=== PATIENT | female | born 1995 | race African-American/Black ===

== ENCOUNTER 2025-07-21 14:29 | Emergency (ER) | payer MEDICAID ==
[~2025-07-21] VITALS: Ht 170.2 cm; Wt 100.0 kg
[2025-07-21 14:39] VITALS: O2SAT 100
[2025-07-21 15:48] LABS: BASOPHILS % 0.7 % (0.0-2.0); EOSINOPHILS % 4.0 % (0.0-5.0); HEMATOCRIT. 37.3 % (36.0-48.0); HEMOGLOBIN. 12.2 g/dL (12.0-16.0); LYMPHOCYTES % 28.0 % (20.0-50.0); MEAN PLATELET VOLUME 8.5 fl (7.4-10.4); MONOCYTES % 6.6 % (2.0-8.0); NEUTROPHILS % 60.7 % (40.0-76.0); PLATELET 278 x1000/uL (130-400); RED BLOOD CELL COUNT 4.48 mill/uL (4.2-5.4); RED CELL DISTRIBUTION WIDTH 14.6 % (11.6-14.6)
[2025-07-21 15:59] LABS: HCG SCREEN NEGATIVE
[2025-07-21 16:01] LABS: INR 1.0
[2025-07-21 16:03] LABS: CREATININE 0.8 mg/dL (0.6-1.0); TROPONIN I HIGH SENSITIVITY < 4 ng/L (3.0-34); UREA NITROGEN BLOOD 6 mg/dL (9-23)
[2025-07-21 16:04] LABS: ASPARTATE AMINOTRANSFERASE 21 IU/L (<34); BILIRUBIN DIRECT 0.2 mg/dL (<=3.0); BILIRUBIN TOTAL 0.7 mg/dL (0.1-1.0); PROTEIN TOTAL 7.6 g/dL (6.0-8.3)
[2025-07-21 16:27] VITALS: BP 113/74; PULSE 66; RESP 16; TEMP 36.7; O2SAT 100
== END 2025-07-21 16:29 | disposition home or self-care (01) ==
LOC: ER 14:29
DX: R07.2 Precordial pain (principal); R07.89 Other chest pain
CPT/HCPCS: 36415; 71045; 80048; 80076; 84484; 84703; 85025; 93005; 99285